=== PATIENT | female | born 1985 ===

== ENCOUNTER → 2016-09-21 | Outpatient (CLI) | payer BC ==
[2016-09-21 06:46] LABS: Basophils # (auto) 0 uL; Basophils % (auto) 0.2 % (0.0-2.0); Eosinophils # (auto) 0.1 uL; Eosinophils % (auto) 1.9 % (0.0-7.0); Hematocrit 37.4 % (36.0-46.0); Lymphocytes # (auto) 1.6 uL; Lymphocytes % (auto) 29.9 % (10.0-50.0); Mean Corpuscular Hemoglobin 30.8 pg (28.0-32.0); Mean Corpuscular Hgb Conc. 34.8 g/dL (32.0-36.0); Mean Corpuscular Volume 88.7 fL (80.0-100.0); Mean Platelet Volume 8.3 fL (7.4-10.4); Monocytes # (auto) 0.4 uL; Monocytes % (auto) 7.7 % (0.0-12.0); Neutrophils # (auto) 3.2 uL; Neutrophils % (auto) 60.3 % (37.0-80.0); Platelet Count (auto) 202 10^3/uL (140-450); Red Cell Distribution Width 13.4 % (11.6-16.0); White Blood Cell 5.3 10^3/uL (4.4-10.8)
== END | disposition home or self-care (01) ==
LOC: LAB 06:36
PROVIDERS: ATTEND Internal Medicine
DX: R17 Unspecified jaundice (principal)
CPT/HCPCS: 36415; 85025

== ENCOUNTER → 2017-12-04 | Outpatient (CLI) | payer BC ==
[2017-12-04 09:38] LABS: Urine Bacteria FEW /hpf (None Seen); Urine Blood 1+ /uL (Negative); Urine Mucus FEW (None Seen); Urine Specific Gravity 1.024 (1.001-1.035); Urine WBC 3 /hpf (0 - 5)
[2017-12-04 10:04] LABS: Basophils # (auto) 0 uL; Basophils % (auto) 0.3 % (0.0-2.0); Eosinophils # (auto) 0.1 uL; Eosinophils % (auto) 1.6 % (0.0-7.0); Hematocrit 40.1 % (36.0-46.0); Hemoglobin 13.8 g/dL (12.2-16.2); Lymphocytes # (auto) 1.6 uL; Lymphocytes % (auto) 34.8 % (10.0-50.0); Mean Corpuscular Hemoglobin 30.6 pg (28.0-32.0); Mean Corpuscular Hgb Conc. 34.3 g/dL (32.0-36.0); Mean Corpuscular Volume 89.4 fL (80.0-100.0); Monocytes # (auto) 0.3 uL; Monocytes % (auto) 7.2 % (0.0-12.0); Neutrophils # (auto) 2.6 uL; Neutrophils % (auto) 56.1 % (37.0-80.0); Platelet Count (auto) 226 10^3/uL (140-450); Red Blood Cells 4.49 10^6/uL (4.0-5.20); Red Cell Distribution Width 13.6 % (11.8-14.3); White Blood Cell 4.6 10^3/uL (4.4-10.8)
[2017-12-04 10:21] LABS: Albumin 4.4 g/dL (3.4-5.0); Magnesium 2.3 mg/dL (1.6-2.6); Potassium 4.1 mmol/L (3.5-5.1)
[2017-12-04 10:22] LABS: BUN/Creatinine Ratio 21.9
[2017-12-04 10:27] LABS: Bilirubin, Total 1.7 mg/dL (0.2-1.0); Total Protein 8.1 g/dL (6.4-8.2)
[2017-12-04 11:01] LABS: CRP High Sensitivity 0.08 mg/dL (< 0.3)
[2017-12-04 11:14] LABS: Prolactin 3.78 ng/mL (2.8-29.2)
[2017-12-04 11:15] LABS: Follicle Stimulating Hormone 6.56 IU/L (SEE BELOW); Leuteinizing Hormone 4.8 IU/L; T3 Total 1.26 ng/mL (0.60-1.81)
[2017-12-04 11:16] LABS: Folate (Folic Acid) 22.47 ng/mL (5.38-24)
[2017-12-04 11:27] LABS: Uric Acid 5.1 mg/dL (2.6-6.0)
== END | disposition home or self-care (01) ==
LOC: LAB 08:59
DX: Z00.01 Encounter for general adult medical examination with abnormal findings (principal); N60.09 Solitary cyst of unspecified breast; R79.89 Other specified abnormal findings of blood chemistry; Z76.89 Persons encountering health services in other specified circumstances
CPT/HCPCS: 36415; 80053; 80061; 81001; 82306; 82607; 82670; 82746; 83001; 83002; 83036; 83735; 84146; 84403; 84436; 84443; 84479; 84480; 84550; 85025; 86141; 86431

== ENCOUNTER → 2018-10-05 | Outpatient (CLI) | payer BC ==
[2018-10-05 09:26] LABS: Basophils # (auto) 0 uL; Basophils % (auto) 0.4 % (0.0-2.0); Eosinophils # (auto) 0.1 uL; Eosinophils % (auto) 2.2 % (0.0-7.0); Hematocrit 39.6 % (36.0-46.0); Hemoglobin 13.9 g/dL (12.2-16.2); Lymphocytes # (auto) 1.1 uL; Lymphocytes % (auto) 22.2 % (10.0-50.0); Mean Corpuscular Hemoglobin 31.5 pg (28.0-32.0); Mean Corpuscular Hgb Conc. 35.1 g/dL (32.0-36.0); Mean Corpuscular Volume 89.6 fL (80.0-100.0); Monocytes # (auto) 0.3 uL; Monocytes % (auto) 5.6 % (0.0-12.0); Neutrophils # (auto) 3.5 uL; Neutrophils % (auto) 69.6 % (37.0-80.0); Nucleated Red Blood Cells % 0.1 %; Platelet Count (auto) 196 10^3/uL (140-450); Red Blood Cells 4.42 10^6/uL (4.0-5.20); Red Cell Distribution Width 14.5 % (11.8-14.3); White Blood Cell 5.1 10^3/uL (4.4-10.8)
[2018-10-05 09:48] LABS: Albumin 4.4 g/dL (3.4-5.0); BUN/Creatinine Ratio 16.7; Calcium 8.7 mg/dL (8.5-10.1); Magnesium 2.5 mg/dL (1.6-2.6); Potassium 3.6 mmol/L (3.5-5.1)
[2018-10-05 09:51] LABS: Bilirubin, Total 1.5 mg/dL (0.2-1.0); Total Protein 8.1 g/dL (6.4-8.2)
[2018-10-05 10:02] LABS: Free T4 (Free Thyroxine) 1.06 ng/dL (0.89-1.76)
[2018-10-05 10:21] LABS: Folate (Folic Acid) 23.13 ng/mL (5.38-24)
[2018-10-08 02:03] LABS: Hepatitis B Surface Antibody Positive
[2018-10-08 06:41] LABS: Hepatitis A Ab IgM Negative
[2018-10-08 06:42] LABS: Hepatitis B Surface Antigen Negative (Negative)
== END | disposition home or self-care (01) ==
LOC: LAB 08:26
PROVIDERS: ATTEND Internal Medicine
DX: Z00.00 Encounter for general adult medical examination without abnormal findings (principal); I10 Essential (primary) hypertension
CPT/HCPCS: 36415; 80053; 82306; 82607; 82746; 83036; 83735; 84439; 84443; 85025; 86592; 86703; 86706; 86709; 87340

== ENCOUNTER → 2019-03-20 | Outpatient (CLI) | payer BC ==
[2019-03-20 11:43] LABS: Basophils # (auto) 0 uL; Basophils % (auto) 0.4 % (0.0-2.0); Eosinophils # (auto) 0.1 uL; Eosinophils % (auto) 2.5 % (0.0-7.0); Hemoglobin 13.3 g/dL (12.2-16.2); Lymphocytes # (auto) 1.5 uL; Lymphocytes % (auto) 31.9 % (10.0-50.0); Mean Corpuscular Hemoglobin 30.6 pg (28.0-32.0); Mean Corpuscular Hgb Conc. 35.1 g/dL (32.0-36.0); Mean Corpuscular Volume 87.2 fL (80.0-100.0); Monocytes # (auto) 0.3 uL; Monocytes % (auto) 7.2 % (0.0-12.0); Neutrophils # (auto) 2.8 uL; Platelet Count (auto) 215 10^3/uL (140-450); Red Blood Cells 4.36 10^6/uL (4.0-5.20); Red Cell Distribution Width 14.3 % (11.8-14.3); White Blood Cell 4.8 10^3/uL (4.4-10.8)
[2019-03-20 11:46] LABS: Albumin 4.1 g/dL (3.4-5.0); Calcium 8.6 mg/dL (8.5-10.1); Potassium 3.7 mmol/L (3.5-5.1)
[2019-03-20 11:49] LABS: BUN/Creatinine Ratio 22.4; Bilirubin, Total 1.5 mg/dL (0.2-1.0); Total Protein 7.9 g/dL (6.4-8.2)
[2019-03-20 11:54] LABS: T3 Total 1.5 ng/mL (0.60-1.81)
[2019-03-20 11:55] LABS: Urine Bacteria NONE SEEN /hpf (None Seen); Urine Blood 1+ /uL (Negative); Urine Mucus FEW (None Seen); Urine Specific Gravity 1.023 (1.001-1.035); Urine Sperm PRESENT /hpf (None Seen); Urine WBC <1 /hpf (0 - 5)
== END | disposition home or self-care (01) ==
LOC: LAB 09:42
PROVIDERS: ATTEND Internal Medicine
DX: Z13.21 Encounter for screening for nutritional disorder (principal); Z13.228 Encounter for screening for other metabolic disorders; D51.0 Vitamin B12 deficiency anemia due to intrinsic factor deficiency; R73.09 Other abnormal glucose; J44.9 Chronic obstructive pulmonary disease, unspecified; I10 Essential (primary) hypertension; A04.8 Other specified bacterial intestinal infections
CPT/HCPCS: 36415; 80053; 81001; 82607; 83036; 84480; 85025

== ENCOUNTER → 2019-04-22 | Outpatient (CLI) | payer BC | END | disposition home or self-care (01) | LOC: LAB 09:48 | DX: O20.0 Threatened abortion (principal) | CPT/HCPCS: 36415; 84702 ==